=== PATIENT | female | born 1980 | race Two or more races ===

== ENCOUNTER 2021-02-25 09:51 | Outpatient (CLI) | payer OTHER | END 2021-02-25 10:05 | disposition home or self-care (01) | LOC: TOM 09:51 | PROVIDERS: ATTEND Internal Medicine Gastroenterology | DX: R10.30 Lower abdominal pain, unspecified (principal); Z80.0 Family history of malignant neoplasm of digestive organs; Z12.31 Encounter for screening mammogram for malignant neoplasm of breast ==